=== PATIENT | male | born 2000 | race Caucasian/White ===

== ENCOUNTER 2020-01-06 20:56 | Emergency (ER) | payer MEDICAID ==
[~2020-01-06] VITALS: Ht 170.2 cm; Wt 109.0 kg
[2020-01-06] MEDS ORDERED: IBUPROFEN 600MG TABLET PO ONE (22:15)
[2020-01-07 00:58] VITALS: BP 120/85
== END 2020-01-07 00:59 | disposition home or self-care (01) ==
LOC: ER 20:56
DX: S93.402A Sprain of unspecified ligament of left ankle, initial encounter (principal); X50.1XXA Overexertion from prolonged static or awkward postures, initial encounter; Y93.01 Activity, walking, marching and hiking; Y92.9 Unspecified place or not applicable
CPT/HCPCS: 29515; 73610; 73630; 99284